=== PATIENT | female | born 1945 | race Caucasian/White ===

== ENCOUNTER → 2018-08-23 | Outpatient (CLI) | payer MEDICARE ==
[2018-08-23 16:58] LABS: CREATININE 0.9 mg/dL (0.5-1.5)
== END | disposition home or self-care (01) ==
LOC: LAB 16:06
PROVIDERS: ATTEND Family Medicine
DX: I10 Essential (primary) hypertension (principal); R42 Dizziness and giddiness; R51 Headache; E11.9 Type 2 diabetes mellitus without complications
CPT/HCPCS: 36415; 82565; 84520

== ENCOUNTER → 2018-08-24 | Outpatient (CLI) | payer MEDICARE ==
[~2018-08-24] MED LIST: IOHEXOL-350 50ML VIAL IV ONE
== END | disposition home or self-care (01) ==
LOC: RAH 14:50
PROVIDERS: ATTEND Family Medicine
DX: I10 Essential (primary) hypertension (principal); R42 Dizziness and giddiness; R51 Headache
CPT/HCPCS: 70470; Q9967

== ENCOUNTER → 2018-08-31 | Outpatient (CLI) | payer MEDICARE | END | disposition home or self-care (01) | LOC: RAH 14:04 | PROVIDERS: ATTEND Family Medicine | DX: I65.23 Occlusion and stenosis of bilateral carotid arteries (principal); R42 Dizziness and giddiness; E11.9 Type 2 diabetes mellitus without complications; I10 Essential (primary) hypertension | CPT/HCPCS: 93880 ==

== ENCOUNTER → 2018-10-04 | Outpatient (CLI) | payer MEDICARE | END | disposition home or self-care (01) | LOC: RAH 15:00 | PROVIDERS: ATTEND Family Medicine | DX: R92.8 Other abnormal and inconclusive findings on diagnostic imaging of breast (principal); M06.9 Rheumatoid arthritis, unspecified | CPT/HCPCS: 77066 ==

== ENCOUNTER 2018-10-11 05:39 | Day surgery (SDC) | payer MEDICARE ==
[~2018-10-11] VITALS: Ht 162.6 cm; Wt 90.7 kg
[~2018-10-11 05:39] MED LIST changes: +ACYC200C PO; +ATOR10TA69 PO; +CLON1TAB12 PO; +DOCU240C88 PO; +DULO60CA63 PO; +FERR-82 PO; +HYDR-3421 PO; -IOHEXOL-350 50ML VIAL IV ONE; +LEVO175T9 PO; +LOSA1TAB7 PO; +MECL25TA31 PO; +METO-408 PO; +MULT-1203 PO; +VERA300C2 PO
[2018-10-11] MEDS ORDERED: SODIUM CHLORIDE 0.9% 1000ML 1,000 ML IV ONE (05:55)
[2018-10-11 06:24] VITALS: BP 133/56
[2018-10-11] MEDS ORDERED: PROPOFOL 10 MG/ML 20ML VIAL IV ONE (07:39)
[2018-10-11] MEDS ORDERED: LIDOCAINE HCL 1% 20 ML VIAL ONE (07:39)
[2018-10-11] MEDS ORDERED: GLYCOPYRROLATE 0.2 MG/ML 5 ML VIAL ONE (07:40)
[2018-10-11 07:53] VITALS: BP 81/28
[2018-10-11 07:59] VITALS: BP 87/29
[2018-10-11 08:04] VITALS: BP 92/35
[2018-10-11 08:10] VITALS: BP 99/45
[2018-10-11 08:14] VITALS: BP 107/49
== END 2018-10-11 08:25 | disposition home or self-care (01) ==
LOC: DAH 05:39 → ENDO 05:39
PROVIDERS: ATTEND Internal Medicine Gastroenterology
DX: Z12.11 Encounter for screening for malignant neoplasm of colon (principal); Z86.010 Personal history of colon polyps; I10 Essential (primary) hypertension; Z79.899 Other long term (current) drug therapy; Z86.73 Personal history of transient ischemic attack (TIA), and cerebral infarction without residual deficits; K57.30 Diverticulosis of large intestine without perforation or abscess without bleeding
CPT/HCPCS: A4606; G0105; J2704; J3490; J7030; 45380

== ENCOUNTER → 2019-11-17 | Outpatient (CLI) | payer MEDICARE ==
[~2019-11-17] MED LIST changes: -DULO60CA63 PO; +DULO60CA64 PO; -VERA300C2 PO; +VERA300C4 PO
== END | disposition home or self-care (01) ==
LOC: RAH 09:35
PROVIDERS: ATTEND Family Medicine
DX: Z12.31 Encounter for screening mammogram for malignant neoplasm of breast (principal)
CPT/HCPCS: 77067

== ENCOUNTER 2022-05-21 13:05 | Emergency (ER) | payer MEDICARE ==
[~2022-05-21 13:05] MED LIST changes: -ACYC200C PO; +ACYC200C24 PO; -DOCU240C88 PO; +DOCU240C90 PO; +MECL-186 PO; -MECL25TA31 PO
[2022-05-21] MEDS ORDERED: MORPHINE 4 MG SYG IVP ONE (14:00)
[2022-05-21] MEDS ORDERED: PROPOFOL 10 MG/ML 20ML VIAL IV ONE (14:30)
[2022-05-21] MEDS ORDERED: 0.9%NACL 1000ML 1,000 ML IV ONE (14:30)
[2022-05-21] MEDS ORDERED: FENTANYL CITRATE PF 50 MCG/1 ML 2ML VIAL IVP ONE (14:30)
[2022-05-21] MEDS ORDERED: ONDANSETRON 4MG INJ IVP ONE (14:30)
[2022-05-21 14:49] LABS: BASOPHILS % (AUTO) 0.5 % (0.0-5.0); EOSINOPHILS % (AUTO) 1.1 % (0.0-8.0); HEMATOCRIT 35.4 % (36-48); LYMPHOCYTES % (AUTO) 8.7 % (21.0-51.0); MEAN CORPUSCULAR HEMOGLOBIN 28.7 pg (27.0-33.0); MEAN CORPUSCULAR HGB CONC 33.1 g/dL (32.0-36.0); MEAN CORPUSCULAR VOLUME 86.8 fL (79-99); MONOCYTES % (AUTO) 3.3 % (3.0-13.0); NEUTROPHILS % (AUTO) 86.1 % (40.0-77.0); PLATELET COUNT (AUTO) 244 K/uL (130-400); RED BLOOD CELL COUNT(AUTO) 4.08 MIL/uL (4.00-5.50); RED CELL DISTRIBUTION WIDTH 14.4 % (11.0-15.5); WHITE BLOOD COUNT (AUTO) 7.3 K/uL (4.8-10.8)
[2022-05-21 15:00] LABS: CREATININE 1.2 mg/dL (0.5-1.5); POTASSIUM 3.4 mmol/L (3.5-5.1)
[2022-05-21 15:05] LABS: ALBUMIN 3.6 g/dL (3.5-5.0); BILIRUBIN,TOTAL 0.5 mg/dL (0.2-1.0); TOTAL PROTEIN, SERUM 6.7 g/dL (6.0-8.3)
[2022-05-21] MEDS ORDERED: TRAM50TA4 PO (19:02)
[2022-05-21 19:13] VITALS: BP 131/64
== END 2022-05-21 19:27 | disposition home or self-care (01) ==
LOC: EDH 13:05
DX: S42.91XA Fracture of right shoulder girdle, part unspecified, initial encounter for closed fracture (principal); S80.01XA Contusion of right knee, initial encounter; E86.0 Dehydration; E11.9 Type 2 diabetes mellitus without complications; I10 Essential (primary) hypertension; Z88.1 Allergy status to other antibiotic agents; Z88.0 Allergy status to penicillin; Z88.8 Allergy status to other drugs, medicaments and biological substances; Z79.899 Other long term (current) drug therapy; W18.39XA Other fall on same level, initial encounter; Y93.89 Activity, other specified; Y92.89 Other specified places as the place of occurrence of the external cause; Y99.8 Other external cause status
CPT/HCPCS: 23650; 36415; 70450; 73030 ×2; 73060; 73200; 73562; 80053; 85025; 93005; 96361; 96374; 96375; 99152; 99285; J2270; J2405; J2704; J3010

== ENCOUNTER → 2022-06-05 | Outpatient (CLI) | payer MEDICARE ==
[~2022-06-05] VITALS: Ht 165.1 cm; Wt 89.6 kg
[~2022-06-05] MED LIST changes: +CLINDAMYCIN IVPB 900MG/50ML 50 ML IV SCH; +TRAM50TA4 PO
[2022-06-05 16:55] VITALS: BP 181/80
[2022-06-05 17:03] LABS: BASOPHILS % (AUTO) 0.9 % (0.0-5.0); EOSINOPHILS % (AUTO) 0.3 % (0.0-8.0); HEMATOCRIT 38.5 % (36-48); LYMPHOCYTES % (AUTO) 13.5 % (21.0-51.0); MEAN CORPUSCULAR HEMOGLOBIN 28.4 pg (27.0-33.0); MEAN CORPUSCULAR HGB CONC 32.7 g/dL (32.0-36.0); MEAN CORPUSCULAR VOLUME 86.9 fL (79-99); MONOCYTES % (AUTO) 4.6 % (3.0-13.0); NEUTROPHILS % (AUTO) 80.4 % (40.0-77.0); PLATELET COUNT (AUTO) 401 K/uL (130-400); RED BLOOD CELL COUNT(AUTO) 4.43 MIL/uL (4.00-5.50); RED CELL DISTRIBUTION WIDTH 14.4 % (11.0-15.5); WHITE BLOOD COUNT (AUTO) 5.9 K/uL (4.8-10.8)
[2022-06-05 17:18] LABS: INR 0.96 (0.85-1.15); PROTHROMBIN TIME 10.5 SEC (9.6-11.6)
[2022-06-05 17:20] LABS: PARTIAL THROMBOPLASTIN TIME 22.8 SEC (26.3-35.5)
[2022-06-05 17:21] LABS: ALBUMIN 3.7 g/dL (3.5-5.0); CARBON DIOXIDE 29 mmol/L (21-32); CHLORIDE 101 mmol/L (101-111); CREATININE 1.1 mg/dL (0.5-1.5); GLOMERULAR FILTR. RATE CALC 51 mL/min (>60); GLUCOSE,RANDOM 97 mg/dL (70-105); POTASSIUM 3.7 mmol/L (3.5-5.1); SODIUM SERUM 141 mmol/L (136-145); UREA NITROGEN, BLOOD 15 mg/dL (7-18)
[2022-06-05 17:33] LABS: CRP QUANTITATIVE < 2.00 mg/L (0.00-9.0)
== END | disposition home or self-care (01) ==
LOC: LAB 11:30 → EDSTATUS 15:00
PROVIDERS: ATTEND Student in an Organized Health Care Education/Training Program
DX: S42.251A Displaced fracture of greater tuberosity of right humerus, initial encounter for closed fracture (principal); M25.511 Pain in right shoulder; I21.9 Acute myocardial infarction, unspecified; I25.2 Old myocardial infarction; X58.XXXA Exposure to other specified factors, initial encounter; Y93.89 Activity, other specified; Y92.89 Other specified places as the place of occurrence of the external cause; Y99.8 Other external cause status
CPT/HCPCS: 36415; 80048; 82040; 84134; 85025; 85610; 85730; 86140; 87426; 87641; 93005; J3490

== ENCOUNTER 2022-06-08 07:30 | Inpatient (IN) | payer MEDICARE ==
[~2022-06-08] VITALS: Ht 170.2 cm; Wt 95.3 kg
[~2022-06-08 07:30] MED LIST changes: -ACYC200C24 PO; -ATOR10TA69 PO; -CLINDAMYCIN IVPB 900MG/50ML 50 ML IV SCH; -CLON1TAB12 PO; -DOCU240C90 PO; -DULO60CA64 PO; -HYDR-3421 PO; -LOSA1TAB7 PO; -MECL-186 PO; -MULT-1203 PO
[2022-06-12 16:05] LABS: BASOPHILS % (AUTO) 0.5 % (0.0-5.0); EOSINOPHILS % (AUTO) 0.2 % (0.0-8.0); HEMATOCRIT 41.9 % (36-48); LYMPHOCYTES % (AUTO) 9.1 % (21.0-51.0); MEAN CORPUSCULAR HEMOGLOBIN 28.9 pg (27.0-33.0); MEAN CORPUSCULAR HGB CONC 34.8 g/dL (32.0-36.0); MONOCYTES % (AUTO) 6.2 % (3.0-13.0); NEUTROPHILS % (AUTO) 83.5 % (40.0-77.0); PLATELET COUNT (AUTO) 440 K/uL (130-400); RED BLOOD CELL COUNT(AUTO) 5.05 MIL/uL (4.00-5.50); RED CELL DISTRIBUTION WIDTH 14.3 % (11.0-15.5); WHITE BLOOD COUNT (AUTO) 10.8 K/uL (4.8-10.8)
[2022-06-12 16:19] LABS: INR 0.98 (0.85-1.15); PROTHROMBIN TIME 10.7 SEC (9.6-11.6)
[2022-06-12 16:20] LABS: PARTIAL THROMBOPLASTIN TIME 25.7 SEC (26.3-35.5)
[2022-06-12 16:27] LABS: CREATININE 1.2 mg/dL (0.5-1.5); CRP QUANTITATIVE 8.8 mg/L (0.00-9.0)
[2022-06-12 16:47] VITALS: BP 186/76
[2022-06-12] MEDS ORDERED: DOCU-116 PO (17:11)
[2022-06-12] MEDS ORDERED: HYDR300T PO (17:11)
[2022-06-12] MEDS ORDERED: CLON1TAB12 PO (17:11)
[2022-06-12] MEDS ORDERED: DULO60CA64 PO (17:11)
[2022-06-12] MEDS ORDERED: LOSA100T58 PO (17:11)
[2022-06-12] MEDS ORDERED: HYDR12.54 PO (17:11)
[2022-06-12] MEDS ORDERED: ATOR20TA65 PO (17:11)
[2022-06-15] VITALS (40 sets, daily range): BP systolic 0–129; BP diastolic 0–71
[2022-06-15] MEDS: 0.9%NACL 1000ML 1,000 ML IV SCH ×2 (03:00→15:42)
[2022-06-15] MEDS ORDERED: CLINDAMYCIN IVPB 900MG/50ML 50 ML IV ONE (06:45)
[2022-06-15] MEDS ORDERED: 0.9%NACL 1000ML 1,000 ML IV ONE (06:46)
[2022-06-15] MEDS ORDERED: GLYCOPYRROLATE 1 MG/5 ML SYRINGE ONE ×2 (07:45→12:07)
[2022-06-15] MEDS ORDERED: ROCURONIUM 10MG/1ML SYR 10 MG/ML ML ONE ×2 (07:46→10:20)
[2022-06-15] MEDS ORDERED: PROPOFOL 10 MG/ML 20ML VIAL IV ONE (07:46)
[2022-06-15] MEDS ORDERED: EPHEDRINE SULFATE 50 MG/ML AMPULE ONE ×2 (07:46→13:38)
[2022-06-15] MEDS ORDERED: FENTANYL CITRATE PF 50 MCG/1 ML 2ML VIAL ONE (07:46)
[2022-06-15] MEDS ORDERED: ONDANSETRON 4MG INJ ONE (08:49)
[2022-06-15] MEDS ORDERED: EPINEPHRINE 1 MG/ML 30ML VIAL IJ ONE (08:52)
[2022-06-15 10:47] LABS: ALANINE AMINOTRANSFERASE 11 U/L (12-78); ALBUMIN 2.8 g/dL (3.5-5.0); ASPARTATE AMINOTRANSFERASE 17 U/L (10-37); CARBON DIOXIDE 25 mmol/L (21-32); CHLORIDE 95 mmol/L (101-111); GLOMERULAR FILTR. RATE CALC 57 mL/min (>60); GLUCOSE,RANDOM 145 mg/dL (70-105); SODIUM SERUM 130 mmol/L (136-145); TOTAL PROTEIN, SERUM 5.7 g/dL (6.0-8.3); UREA NITROGEN, BLOOD 17 mg/dL (7-18)
[2022-06-15 10:55] LABS: POTASSIUM 2.5 mmol/L (3.5-5.1)
[2022-06-15] MEDS ORDERED: MAGNESIUM SULFATE 1 GM/2 ML VIAL ONE (11:00)
[2022-06-15] MEDS ORDERED: POTASSIUM CHLORIDE 20MEQ/100ML 200 ML IV ONE (11:00)
[2022-06-15] MEDS ORDERED: MAGNESIUM 2GM PREMIX 50ML 50 ML IV SCH (12:00)
[2022-06-15] MEDS ORDERED: NEOSTIGMINE 5MG/5ML SYR IV ONE (12:07)
[2022-06-15] MEDS ORDERED: POTASSIUM CHLORIDE 10% ELIXIR 20 MEQ/15 ML UDCUP PO PRN (13:00)
[2022-06-15] MEDS ORDERED: LIDOCAINE HCL-MPF 1% 2ML VIAL IV PRN (13:00)
[2022-06-15] MEDS ORDERED: ONDANSETRON 4MG INJ IVP PRN (13:00)
[2022-06-15] MEDS ORDERED: TRAMADOL HCL 50 MG TABLET PO PRN (13:00)
[2022-06-15] MEDS ORDERED: HYDROCODONE/ACETAMINOPHEN 5/325 MG TAB PO PRN (13:00)
[2022-06-15] MEDS ORDERED: KCL 20 MEQ ERTAB PO PRN (13:00)
[2022-06-15] MEDS ORDERED: CALCIUM CARB 500MG PO PRN (13:00)
[2022-06-15] MEDS ORDERED: FE FUMARATE/FA/MV, MIN COMB#15 1 TAB PO PRN (13:00)
[2022-06-15] MEDS ORDERED: MULT-248 PO (13:30)
[2022-06-15] MEDS ORDERED: ATROPINE 1MG SYG IVP ONE (14:18)
[2022-06-15] MEDS ORDERED: DOPAMINE HCL 400 MG/D5%-WATER 250 ML IV ONE (15:06)
[2022-06-15 15:26] LABS: ALBUMIN 2.5 g/dL (3.5-5.0); CREATININE 1.1 mg/dL (0.5-1.5); MAGNESIUM 2.2 mg/dL (1.80-2.40); TOTAL PROTEIN, SERUM 5.1 g/dL (6.0-8.3)
[2022-06-15] MEDS: ACETAMINOPHEN 500 MG TABLET PO SCH ×2 (15:41→21:00)
[2022-06-15] MEDS: DOPAMINE HCL 400 MG/D5%-WATER 250 ML IV PRN (16:08)
[2022-06-15 16:13] LABS: POTASSIUM 2.9 mmol/L (3.5-5.1)
[2022-06-15] MEDS: POTASSIUM CHLORIDE 20MEQ/100ML 100 ML IV PRN ×2 (16:17→18:24)
[2022-06-15] MEDS: CLINDAMYCIN IVPB 900MG/50ML 50 ML IV SCH (18:26)
[2022-06-15 19:35] LABS: THYROID STIMULATING HORMONE 2.71 uIU/mL (0.36-3.74)
[2022-06-16] VITALS (12 sets, daily range): BP systolic 103–135; BP diastolic 42–78
[2022-06-16 01:26] LABS: BASOPHILS % (AUTO) 0.3 % (0.0-5.0); EOSINOPHILS % (AUTO) 0.1 % (0.0-8.0); HEMATOCRIT 31.3 % (36-48); LYMPHOCYTES % (AUTO) 7.2 % (21.0-51.0); MEAN CORPUSCULAR HEMOGLOBIN 28.3 pg (27.0-33.0); MEAN CORPUSCULAR HGB CONC 34.2 g/dL (32.0-36.0); MEAN CORPUSCULAR VOLUME 82.8 fL (79-99); MONOCYTES % (AUTO) 10.9 % (3.0-13.0); NEUTROPHILS % (AUTO) 81.3 % (40.0-77.0); PLATELET COUNT (AUTO) 326 K/uL (130-400); RED BLOOD CELL COUNT(AUTO) 3.78 MIL/uL (4.00-5.50); RED CELL DISTRIBUTION WIDTH 14.5 % (11.0-15.5)
[2022-06-16 01:36] LABS: CREATININE 1.1 mg/dL (0.5-1.5); POTASSIUM 3.7 mmol/L (3.5-5.1)
[2022-06-16 01:43] LABS: ALBUMIN 2.8 g/dL (3.5-5.0); TOTAL PROTEIN, SERUM 5.8 g/dL (6.0-8.3)
[2022-06-16 02:03] LABS: HEMOGLOBIN A1C 5.8 % (4.0-6.0)
[2022-06-16] MEDS: DOPAMINE HCL 400 MG/D5%-WATER 250 ML IV PRN (02:03)
[2022-06-16] MEDS: CLINDAMYCIN IVPB 900MG/50ML 50 ML IV SCH (02:08)
[2022-06-16] MEDS: KETOROLAC 15MG/ML VIAL (15MG/ML) IV PRN ×2 (03:27→10:30)
[2022-06-16 03:48] LABS: APPEARANCE,URINE CLEAR (CLEAR); BILIRUBIN,URINE NEGATIVE (NEGATIVE); COLOR,URINE YELLOW (YELLOW); GLUCOSE, URINE (UA) NEGATIVE (NEGATIVE); KETONES,URINE NEGATIVE (NEGATIVE); LEUKOCYTE ESTERASE ,URINE NEGATIVE (NEGATIVE); NITRATE,URINE NEGATIVE (NEGATIVE); OCCULT BLOOD,URINE NEGATIVE (NEGATIVE); PROTEIN,URINE NEGATIVE (NEGATIVE); UROBILINOGEN,URINE 0.2 mg/dL (0.2-1.0)
[2022-06-16] MEDS: ACETAMINOPHEN 500 MG TABLET PO SCH ×3 (05:00→21:09)
[2022-06-16] MEDS: POLYETHYLENE GLYCOL 3350 17 GM POWD.PACK PO SCH (08:16)
[2022-06-16] MEDS: 0.9%NACL 1000ML 1,000 ML IV SCH (09:00)
[2022-06-16] MEDS: ASPIRIN 325MG TAB PO SCH (21:08)
[2022-06-16] MEDS ORDERED: DULO30CA52 PO (21:16)
[2022-06-16] MEDS ORDERED: CLONAZEPAM 1MG TAB PO SCH (21:30)
[2022-06-16] MEDS ORDERED: CLONAZEPAM 1MG TAB PO PRN (22:30)
[2022-06-16] MEDS: DULOXETINE HCL 30 MG CAP PO SCH (22:30)
[2022-06-16] MEDS: DOCUSATE SODIUM 100 MG CAP PO SCH (22:31)
[2022-06-16] MEDS: METOPROLOL SUCCINATE 25 MG TAB.SR.24H PO SCH (23:50)
[2022-06-17 00:35] VITALS: BP 146/62
[2022-06-17 04:26] VITALS: BP 173/74
[2022-06-17] MEDS: LEVOTHYROXINE 150 MCG TABLET PO SCH (06:36)
[2022-06-17] MEDS: LEVOTHYROXINE 25 MCG TABLET PO SCH (06:36)
[2022-06-17] MEDS: ACETAMINOPHEN 500 MG TABLET PO SCH ×3 (06:38→20:50)
[2022-06-17 07:54] VITALS: BP 156/58
[2022-06-17] MEDS: ASPIRIN 325MG TAB PO SCH ×2 (08:52→20:50)
[2022-06-17] MEDS: ATORVASTATIN 20 MG TABLET PO SCH (08:52)
[2022-06-17] MEDS: HYDROCHLOROTHIAZIDE 25 MG TABLET PO SCH (08:52)
[2022-06-17] MEDS: MULTIVITAMIN WITH MINERALS TABLET PO SCH (08:52)
[2022-06-17] MEDS: POLYETHYLENE GLYCOL 3350 17 GM POWD.PACK PO SCH (08:52)
[2022-06-17] MEDS: FERROUS SULFATE 325 MG TABLET.DR PO SCH (08:52)
[2022-06-17] MEDS: HYDROXYCHLOROQUINE SULFATE 200 MG TAB PO SCH (08:52)
[2022-06-17] MEDS: LOSARTAN 100 MG TABLET PO SCH (08:53)
[2022-06-17] MEDS: DULOXETINE HCL 30 MG CAP PO SCH ×2 (08:53→20:52)
[2022-06-17] MEDS ORDERED: NON-FORMULARY MEDICATION 1 EACH (Levothyroxine Sodium 175 MCG) PO SCH (09:00)
[2022-06-17] MEDS ORDERED: HYDROXYCHLOROQUINE SULFATE 300 MG PO SCH (09:00)
[2022-06-17] MEDS ORDERED: NON-FORMULARY MEDICATION 1 EACH (Ferrous Sulfate (Iron) 325 MG) PO SCH (09:00)
[2022-06-17] MEDS ORDERED: NON-FORMULARY MEDICATION 1 EACH (Duloxetine HCl 60 MG) PO SCH (09:00)
[2022-06-17] MEDS ORDERED: NON-FORMULARY MEDICATION 1 EACH (Hydrochlorothiazide 12.5 MG) PO SCH (09:00)
[2022-06-17 11:29] VITALS: BP 150/77
[2022-06-17 16:06] VITALS: BP 162/71
[2022-06-17 20:49] VITALS: BP 166/65
[2022-06-17] MEDS: METOPROLOL SUCCINATE 25 MG TAB.SR.24H PO SCH (20:52)
[2022-06-17] MEDS: DOCUSATE SODIUM 100 MG CAP PO SCH (20:52)
[2022-06-17] MEDS ORDERED: VERAPAMIL 300 MG PO SCH (21:00)
[2022-06-17] MEDS ORDERED: VERAPAMIL HCL 300 MG PO SCH (21:00)
[2022-06-18 01:04] VITALS: BP 135/59
[2022-06-18] MEDS: ACETAMINOPHEN 500 MG TABLET PO SCH ×2 (05:00→12:24)
[2022-06-18] MEDS: LEVOTHYROXINE 150 MCG TABLET PO SCH (06:06)
[2022-06-18] MEDS: LEVOTHYROXINE 25 MCG TABLET PO SCH (06:06)
[2022-06-18 08:15] VITALS: BP 136/68
[2022-06-18] MEDS: POLYETHYLENE GLYCOL 3350 17 GM POWD.PACK PO SCH (09:09)
[2022-06-18] MEDS: ASPIRIN 325MG TAB PO SCH (09:09)
[2022-06-18] MEDS: MULTIVITAMIN WITH MINERALS TABLET PO SCH (09:09)
[2022-06-18] MEDS: HYDROCHLOROTHIAZIDE 25 MG TABLET PO SCH (09:09)
[2022-06-18] MEDS: FERROUS SULFATE 325 MG TABLET.DR PO SCH (09:10)
[2022-06-18] MEDS: ATORVASTATIN 20 MG TABLET PO SCH (09:10)
[2022-06-18] MEDS: HYDROXYCHLOROQUINE SULFATE 200 MG TAB PO SCH (09:10)
[2022-06-18] MEDS: DULOXETINE HCL 30 MG CAP PO SCH (09:10)
[2022-06-18] MEDS: LOSARTAN 100 MG TABLET PO SCH (09:10)
[2022-06-18 11:50] VITALS: BP 144/59
[2022-06-18] MEDS ORDERED: BISACODYL 10 MG SUPP.RECT RC PRN (13:00)
== END 2022-06-18 15:40 | DRG 483 ==
LOC: DAHIP 06-15 05:38 → OBSVTOIN 06-15 05:38 → EDSTATUS 06-15 07:30 → 2BH 06-15 15:06 → 4BH 06-16 18:33
PROVIDERS: ADMIT Student in an Organized Health Care Education/Training Program; ATTEND Student in an Organized Health Care Education/Training Program
PROC: 0RRJ0JZ Replacement of Right Shoulder Joint with Synthetic Substitute, Open Approach (ICD-10-PCS; principal; 2022-06-15 07:30)
PROC: 3E0T3BZ Introduction of Anesthetic Agent into Peripheral Nerves and Plexi, Percutaneous Approach (ICD-10-PCS; 2022-06-15 07:30)
PROC: 5A09357 Assistance with Respiratory Ventilation, Less than 24 Consecutive Hours, Continuous Positive Airway Pressure (ICD-10-PCS; 2022-06-15 07:30)
PROC: 5A09357 Assistance with Respiratory Ventilation, Less than 24 Consecutive Hours, Continuous Positive Airway Pressure (ICD-10-PCS; 2022-06-16)
DX: S42.251A Displaced fracture of greater tuberosity of right humerus, initial encounter for closed fracture (principal); E66.01 Morbid (severe) obesity due to excess calories; Z68.32 Body mass index [BMI] 32.0-32.9, adult; Z88.0 Allergy status to penicillin; Z88.8 Allergy status to other drugs, medicaments and biological substances; E78.5 Hyperlipidemia, unspecified; I10 Essential (primary) hypertension; Z86.73 Personal history of transient ischemic attack (TIA), and cerebral infarction without residual deficits; E03.9 Hypothyroidism, unspecified; R00.1 Bradycardia, unspecified; W18.39XA Other fall on same level, initial encounter; Y93.89 Activity, other specified; Y92.89 Other specified places as the place of occurrence of the external cause; Y99.8 Other external cause status; E87.8 Other disorders of electrolyte and fluid balance, not elsewhere classified; T88.59XA Other complications of anesthesia, initial encounter
CPT/HCPCS: 36415; 71045; 73060; 76770; 80048; 80053; 81003; 82040; 82533; 83036; 83735; 84439; 84443; 84481; 84484; 85025; 85610; 85730; 86140; 87040; 87426; 87641; 93005; 93306; 93356; 93970; 94660; 97039; A4565; C1776; G0378; J0171; J0461; J1265; J1885; J2405; J2704; J2710; J3010; J3475; J3480; J3490; J7030